=== PATIENT | female | born 1945 | race Asian ===

== ENCOUNTER 2016-08-02 23:29 | Emergency (ER) | payer OTHER, MEDICAID ==
[~2016-08-02] VITALS: Ht 157.5 cm; Wt 54.4 kg
[2016-08-02 23:42] VITALS: BP_SYST 148
--- NOTE | 2016-08-03 00:02 | NUR ---
Patient to ER bed 6 to gown for evaluation. Side rails up. Report given to Coretta CASE.
--- NOTE | 2016-08-03 00:10 | NUR ---
Patient brought to ER by son C/O right lower abdominal quadrant, 10/07 dull, denies N/V/D/C. States "pain comes and goes, for long time" AAOx4, unlabored breathing, no signs of acute distress.
--- NOTE | 2016-08-03 01:07 | NUR ---
ER MD Hughes at bedside evaluating the patient
[2016-08-03] MEDS ORDERED: NACL 0.9% 1,000 ML IV ONE (01:35)
[2016-08-03] MEDS ORDERED: HYDROcodone/ACETAMIN 7.5-325 MG TAB PO ONE (01:45)
--- NOTE | 2016-08-03 01:50 | NUR ---
# 22 gauge angiocath placed to left hand. Use of asceptic technique. Opsite placed over site. Blood return noted. Flushed with 10 cc of normal saline. No evidence of infiltration noted. Patient tolerated well.
--- NOTE | 2016-08-03 02:03 | NUR ---
Patient off the unit for CT via gurney
[2016-08-03 02:13] LABS: EOSINOPHILS # (AUTO) 0.2 K/uL (0.0-0.4)
[2016-08-03 02:17] LABS: CALCIUM 9.5 mg/dL (8.4-11.0); CREATININE 0.93 mg/dL (0.55-1.30); POTASSIUM 3.5 mmol/L (3.5-5.1)
[2016-08-03 02:20] LABS: BASOPHILS # (AUTO) 0.1 K/uL (0.0-0.2); HEMOGLOBIN 13.9 g/dL (12.0-16.0); MONOCYTES # (AUTO) 0.7 K/uL (0.0-1.0)
[2016-08-03 02:25] LABS: ALBUMIN 4.4 g/dL (3.4-4.8); MEAN CORPUSCULAR HEMOGLOBIN 28 pg (27-31); MEAN CORPUSCULAR VOLUME 87 fL (79.0-98.0); PLATELET COUNT (AUTO) 176 K/uL (130-430); TOTAL BILIRUBIN 0.5 mg/dL (0.0-1.0); TOTAL PROTEIN, SERUM 8.4 g/dL (6.4-8.3)
[2016-08-03 02:26] LABS: HEMATOCRIT 43.1 % (36-48); MEAN CORPUSCULAR HGB CONC 32 % (32-36); RED BLOOD CELL COUNT(AUTO) 4.94 MIL/uL (4.2-6.2); RED CELL DISTRIBUTION WIDTH 12.1 % (9.0-15.0); WHITE BLOOD COUNT (AUTO) 9.4 K/uL (4.8-10.8)
[2016-08-03 02:27] LABS: BASOPHILS % (AUTO) 1.4 % (0.0-2.0); EOSINOPHILS % (AUTO) 1.9 % (0.0-4.0); LYMPHOCYTES % (AUTO) 32.7 % (20.5-51.5); NEUTROPHILS # (AUTO) 5.1 K/uL (1.8-7.7)
[2016-08-03 03:05] LABS: BILIRUBIN,URINE NEGATIVE (NEGATIVE); BLOOD, URINE NEGATIVE (NEGATIVE); CLARITY/URINE CLEAR (CLEAR); COLOR,URINE YELLOW (YELLOW); GLUCOSE,URINE 1+ (NEGATIVE); KETONES,URINE NEGATIVE (NEGATIVE); LEUKOCYTE ESTERASE ,URINE NEGATIVE (NEGATIVE); NITRITE, URINE NEGATIVE (NEGATIVE); PROTEIN URINE NEGATIVE (NEGATIVE); UROBILINOGEN,URINE 0.2 (0.2-1.0)
[2016-08-03 03:30] VITALS: BP_SYST 132
--- NOTE | 2016-08-03 03:30 | NUR ---
Patient given written and verbal discharge instructions and verbalizes understanding. ER MD Hughes discussed with patient the results and treatment provided. Patient in stable condition. ID arm band removed. IV catheter removed intact and dressing applied, no active bleeding. Patient educated on pain management and to follow up with PMD. Pain Scale 0/10. Opportunity for questions provided and answered.
== END 2016-08-03 03:30 | disposition home or self-care (01) ==
LOC: SED 23:29
DX: R10.31 Right lower quadrant pain (principal); E11.9 Type 2 diabetes mellitus without complications; I10 Essential (primary) hypertension; Z90.89 Acquired absence of other organs; Z90.49 Acquired absence of other specified parts of digestive tract
CPT/HCPCS: 36415; 74176; 80053; 81003; 85025; 96360; 99285; J7030